=== PATIENT | female | born 1970 | race Caucasian/White ===

== ENCOUNTER 2016-11-27 10:05 | Emergency (ER) | payer OTHER ==
[~2016-11-27 10:05] MED LIST: IBUP-988 PO; Z.0.NO CURRENT MEDS
[2016-11-27 10:15] VITALS: BP 142/81; PULSE 89; RESP 15; TEMP 98.1; O2SAT 98
[2016-12-25] MEDS ORDERED: LISI10TA3 PO (16:13)
[2017-01-18] MEDS ORDERED: CIPR500T2 PO (14:32)
[2017-01-21] MEDS ORDERED: NITR1CAP36 PO (08:49)
[2017-01-31] MEDS ORDERED: LISI10TA3 PO (15:17)
[2017-02-08] MEDS ORDERED: HYDR-3533 PO (12:28)
[2017-02-08] MEDS ORDERED: BACT800T5 PO (12:34)
== END 2016-11-27 11:57 | disposition left against medical advice (07) ==
LOC: NED 10:05
DX: M25.519 Pain in unspecified shoulder (principal)
CPT/HCPCS: 99281

== ENCOUNTER → 2016-12-19 | Outpatient (CLI) | payer OTHER ==
[~2016-12-19] MED LIST changes: +BACT800T5 PO; +CIPR500T2 PO; +HYDR-3533 PO; -IBUP-988 PO; +LISI10TA3 PO; +NITR1CAP36 PO; -Z.0.NO CURRENT MEDS
[2016-12-19 08:56] LABS: BASOPHIL # 0.1 TH/MM3 (0-0.2); BASOPHIL % 1.3 % (0.0-2.0); EOSINOPHIL # 0.2 TH/MM3 (0-0.4); EOSINOPHIL % 2.7 % (0.0-4.0); HEMATOCRIT 40.1 % (35.0-46.0); HEMO FLAGS DIFF FINAL; LYMPH % 26.3 % (9.0-44.0); LYMPHOCYTE # 1.8 TH/MM3 (1.0-4.8); MEAN CELL VOLUME 94.6 FL (80.0-100.0); MEAN CORPUSCULAR HEMOGLOBIN 32.3 PG (27.0-34.0); MEAN CORPUSCULAR HGB CONC 34.1 % (32.0-36.0); MONO % 9.4 % (0.0-8.0); NEUT % 60.3 % (16.0-70.0); PLATELET COUNT 179 TH/MM3 (150-450); RED BLOOD COUNT 4.24 MIL/MM3 (4.00-5.30); RED CELL DISTRIBUTION WIDTH 13.3 % (11.6-17.2); WHITE BLOOD COUNT 6.7 TH/MM3 (4.0-11.0)
[2016-12-19 09:27] LABS: ANION GAP 9 MEQ/L (5-15); AST (GOT) 18 U/L (15-37); BICARBONATE 23.9 MEQ/L (21.0-32.0); BLOOD UREA NITROGEN 3 MG/DL (7-18); CHLORIDE 94 MEQ/L (98-107); GLOMERULAR FILTRATION RATE 100 ML/MIN (>89); GLUCOSE,FASTING 94 MG/DL (74-99); POTASSIUM 3.5 MEQ/L (3.5-5.1); SODIUM (NA) 127 MEQ/L (136-145)
[2016-12-19 09:29] LABS: ALT (GPT) 22 U/L (10-53)
[2016-12-19 09:38] LABS: ALKALINE PHOSPHATASE 54 U/L (45-117); HDL CHOLESTEROL 84.4 MG/DL (40.0-60.0); LDL CHOLESTEROL 82 MG/DL (0-99); TOTAL BILIRUBIN ADULT 0.2 MG/DL (0.2-1.0)
--- NOTE | 2016-12-19 11:06 | RADRPT ---
EXAM DATE/TIME: 12/19/2016 10:01 [facility] COMPARISON: No previous studies available for comparison. INDICATIONS : Irregular periods. MEDICAL HISTORY : Hypertension. Irregular periods. Ovarian cysts. SURGICAL HISTORY : Right oopherectomy. Left ovarian cysts removed. ENCOUNTER: Initial ACUITY: 2 months PAIN SCORE: 5/10 LOCATION: Bilateral pelvis MEASUREMENTS: UTERUS: 8.5 x 5.5 x 3.9 cm ENDOMETRIAL STRIPE: 9 mm RIGHT OVARY: Surgically absent LEFT OVARY: 5.2 x 3.9 x 3.8 cm FINDINGS: UTERUS: The myometrium has homogeneous echotexture without mass. Endometrium measures 9 mm, prominent in the 46 year-old. RIGHT OVARY: Surgically absent LEFT OVARY: 3.7 cm simple cyst. History of previous cyst resection. MISCELLANEOUS: No free fluid. CONCLUSION: Limited visualization because of non-full bladder. Mildly prominent endometrium may be normal depending on cycle. Baltazar Ashraf MD FACR on December 19, 2016 at 11:02 Board Certified Radiologist. This report was verified electronically.
== END ==
LOC: HRAD 08:29
PROVIDERS: ATTEND Nurse Practitioner Family
DX: N92.6 Irregular menstruation, unspecified (principal); I10 Essential (primary) hypertension
CPT/HCPCS: 36415; 76856; 80053; 80061; 84443; 85025

== ENCOUNTER → 2017-02-12 | Outpatient (CLI) | payer OTHER ==
[~2017-02-12] MED LIST changes: -CIPR500T2 PO; +CYAN100025 SL; -NITR1CAP36 PO; +VITA250T3 PO
[2017-02-12 16:03] LABS: BACTERIA, URINE OCC /hpf; BLOOD, URINE NEG (NEG); COMMENT (UR) CULTURE INDICATED; CULTURE IF INDICATED CULTURE INDICATED; GLUCOSE,URINE NEG (NEG); KETONE, URINE NEG (NEG); NITRITE,URINE NEG (NEG); SQUAMOUS EPITHELIAL CELL URINE <1 /hpf (0-5); URINE COLOR LIGHT-YELLOW (YELLW/STRAW)
== END ==
LOC: CLAB 15:12
PROVIDERS: ATTEND Nurse Practitioner Family
DX: N30.01 Acute cystitis with hematuria (principal)
CPT/HCPCS: 81001; 87086

== ENCOUNTER → 2017-02-14 | Outpatient (CLI) | payer OTHER ==
[2017-02-14 14:31] LABS: AUTOMATED NEUTROPHIL # 2.7 TH/MM3 (1.8-7.7); BASOPHIL # 0.1 TH/MM3 (0-0.2); BASOPHIL % 1.1 % (0.0-2.0); EOSINOPHIL # 0.2 TH/MM3 (0-0.4); EOSINOPHIL % 3.8 % (0.0-4.0); HEMATOCRIT 43.3 % (35.0-46.0); HEMOGLOBIN 15.2 GM/DL (11.6-15.3); LYMPH % 40.6 % (9.0-44.0); LYMPHOCYTE # 2.5 TH/MM3 (1.0-4.8); MEAN CELL VOLUME 93.9 FL (80.0-100.0); MEAN CORPUSCULAR HEMOGLOBIN 32.9 PG (27.0-34.0); MEAN CORPUSCULAR HGB CONC 35.1 % (32.0-36.0); MEAN PLATELET VOLUME 8.2 FL (7.0-11.0); MONO % 9.6 % (0.0-8.0); MONOCYTE # 0.6 TH/MM3 (0-0.9); NEUT % 44.9 % (16.0-70.0); PLATELET COUNT 202 TH/MM3 (150-450); RED BLOOD COUNT 4.61 MIL/MM3 (4.00-5.30); RED CELL DISTRIBUTION WIDTH 12.6 % (11.6-17.2)
[2017-02-14 14:38] LABS: PROTHROMBIN TIME - PATIENT 10.6 SEC (9.8-11.6)
[2017-02-14 14:40] LABS: ALBUMIN 3.5 GM/DL (3.4-5.0); AST (GOT) 23 U/L (15-37); BICARBONATE 25.8 MEQ/L (21.0-32.0); BLOOD UREA NITROGEN 6 MG/DL (7-18); CALCIUM 9.2 MG/DL (8.5-10.1); CHLORIDE 103 MEQ/L (98-107); CREATININE 0.77 MG/DL (0.50-1.00); GLOMERULAR FILTRATION RATE 80 ML/MIN (>89); GLUCOSE,FASTING 59 MG/DL (74-99); SODIUM (NA) 135 MEQ/L (136-145)
[2017-02-14 14:41] LABS: ALT (GPT) 31 U/L (10-53)
[2017-02-14 14:45] LABS: ALKALINE PHOSPHATASE 65 U/L (45-117); TOTAL BILIRUBIN ADULT 0.2 MG/DL (0.2-1.0); TOTAL PROTEIN 7.6 GM/DL (6.4-8.2)
== END ==
LOC: CPRE 13:54
PROVIDERS: ATTEND Obstetrics & Gynecology Gynecologic Oncology
DX: Z01.812 Encounter for preprocedural laboratory examination (principal); N93.9 Abnormal uterine and vaginal bleeding, unspecified
CPT/HCPCS: 36415; 80053; 84703; 85025; 85610; 85730

== ENCOUNTER → 2017-03-05 | Day surgery (SDC) | payer OTHER ==
[~2017-03-05] VITALS: Ht 175.3 cm; Wt 82.8 kg
[~2017-03-05] MED LIST changes: +ACETAMINOPHEN 1000 MG/100 ML 100 ML IV ONE; -BACT800T5 PO; +CHLORHEXIDINE GLUCONATE 2 % 1 PACK (2 CLOTHS) TOPICAL PRN; +DEXAMETHASONE SOD PHOS 4 MG/ML VIAL IV ONE; +DO NOT ADM ANY ANTICOAGULANT DRUGS PRN; +FAMOTIDINE 20 MG/2 ML VIAL ONE; +HYDR-3516 PO; +INSULIN HUMAN REGULAR 1,000 UNITS/10 ML VIAL SQ PRN; +KETOROLAC TROMETHAMINE 30 MG/ML (IVP) VIAL IV PUSH SCH; +KETOROLAC TROMETHAMINE 30 MG/ML (IVP) VIAL ONE; +LACTATED RINGER'S 1000 ML IV PRN; +LIDOCAINE HCL 1% PF 5 ML SYRINGE OTHER ONE; +METOPROLOL TARTRATE 25 MG TAB PO PRN; +MIDAZOLAM HCL 2 MG/2 ML VIAL IV ONE; +ONDANSETRON HCL 4 MG/2 ML VIAL IV PUSH ONE; +POVIDONE IODINE 5% (ANTISEPSIS KIT) 4 APPLICATIONS EACH NARE PRN; +PROPOFOL 200 MG/20 ML AMP IV ONE; +SODIUM CHLORID 0.9% 500 ML IV PRN; +ZOFR4TAB PO; +oxyCODONE/ACETAMINOPHEN 5 MG/325 MG TAB PO PRN
[2017-03-05 16:30] VITALS: BP 129/78; PULSE 90; RESP 15; TEMP 97.2; O2SAT 99
--- NOTE | 2017-03-06 09:27 | MP ---
cc: MILAD OSPINA MD, KELLY L. MD DATE OF SURGERY: 03/05/2017 PREOPERATIVE DIAGNOSIS 1. Irregular bleeding. 2. Nondiagnostic office endometrial biopsy. 3. Status post prior endometrial ablation. POSTOPERATIVE DIAGNOSIS 1. Irregular bleeding. 2. Nondiagnostic office endometrial biopsy. 3. Status post prior endometrial ablation. 4. Prominent cervical transformation zone. PROCEDURE Examination under anesthesia, fractional dilation and curettage, cervical biopsy. SURGEON Cat Askew MD [employer] INS[employer]CTION [employer] REPAIR MANAGER [employer] human resources assistant. ANESTHESIA Laryngeal mask anesthesia. ESTIMATED BLOOD LOSS 30 ccs. HISTORY This is a 47-year-old female who has history of irregular heavy bleeding and has previously undergone an endometrial ablation. This ablation significantly reduced her bleeding. However, in recent months bleeding has increased. Her bleeding can be irregular and that it is not scheduled consistent with menses and can be at times unpredictable and has become more troublesome and heavier in recent times, for which she sought further evaluation. Outpatient endometrial biopsy had scant amount of tissue, was nondiagnostic. She was counseled regarding options and favored dilation and curettage. She is seen in the preop holding area where she is again counseled, questions were answered. She expressed good understanding and agrees. FINDINGS There is stenosis of the cervix with a marked narrowing of the endocervical canal. On the cervix itself the 12 o'clock position near the transformation zone was prominent, felt a bit nodular. The cervix otherwise grossly appeared normal. There was no parametrial thickening. The uterus and cervix were mobile. The uterine cavity sounded to 6 cm. The amount of tissue obtained on endocervical curetting and endometrial curetting was relatively scant. PROCEDURE She was taken to the operating room and placed in dorsal lithotomy position, after laryngeal mask anesthesia was administered, time-out was undertaken. She was identified by sight recognition and hospital ID bracelet and the proposed procedure was reviewed and confirmed. She was positioned in lithotomy position. Exam under anesthesia was performed with findings as described above, prepped and draped in sterile fashion, in-and-out catheterization of the bladder. This cervix was grasped, endocervical curetting was performed. Multiple circumferential passes and the tissue combined as endocervical curetting. The uterine cavity was sounded. The uterus was slightly retroverted, 6 cm in depth and the cervical canal was dilated. There was resistance at the endocervical canal due to some stenosis but gradual dilation allowed opening enough for a small curette which was then used multiple passes circumferentially around the endometrium, tissue combined as endometrial curettings. All surfaces of the endometrium were gritty and only a scant amount of tissue was obtained. Biopsy was taken at the 12 o'clock position of the cervix which grossly appeared somewhat irregular and these sites were rendered hemostatic with topical Monsel's solution. The tenaculum was removed and tenaculum sites were rendered hemostatic with Monsel's. There were no remaining foreign objects in the vagina. Preliminary and final counts were correct. She was returned to dorsal supine position and was pending reversal of anesthesia when I left the operating room to precede her to the Post Anesthesia Care Unit. MD BEAN Huff/LEI /8:47 AM /9:09 AM
== END | disposition home or self-care (01) ==
LOC: HSDC 11:10
PROVIDERS: ATTEND Obstetrics & Gynecology Gynecologic Oncology
DX: N93.9 Abnormal uterine and vaginal bleeding, unspecified (principal); I10 Essential (primary) hypertension
CPT/HCPCS: 00940; 58120; 84703; 86850; 86900; 86901; 88305; J0131; J1100; J2250; J2405; J3010; J7120; 88307; J1885

== ENCOUNTER 2017-03-09 14:46 | Emergency (ER) | payer OTHER ==
[~2017-03-09] VITALS: Ht 175.3 cm; Wt 84.0 kg
[~2017-03-09 14:46] MED LIST changes: -ACETAMINOPHEN 1000 MG/100 ML 100 ML IV ONE; -CHLORHEXIDINE GLUCONATE 2 % 1 PACK (2 CLOTHS) TOPICAL PRN; -DEXAMETHASONE SOD PHOS 4 MG/ML VIAL IV ONE; -DO NOT ADM ANY ANTICOAGULANT DRUGS PRN; -FAMOTIDINE 20 MG/2 ML VIAL ONE; -HYDR-3533 PO; -INSULIN HUMAN REGULAR 1,000 UNITS/10 ML VIAL SQ PRN; -KETOROLAC TROMETHAMINE 30 MG/ML (IVP) VIAL IV PUSH SCH; -KETOROLAC TROMETHAMINE 30 MG/ML (IVP) VIAL ONE; -LACTATED RINGER'S 1000 ML IV PRN; -LIDOCAINE HCL 1% PF 5 ML SYRINGE OTHER ONE; -METOPROLOL TARTRATE 25 MG TAB PO PRN; -MIDAZOLAM HCL 2 MG/2 ML VIAL IV ONE; -ONDANSETRON HCL 4 MG/2 ML VIAL IV PUSH ONE; -POVIDONE IODINE 5% (ANTISEPSIS KIT) 4 APPLICATIONS EACH NARE PRN; -PROPOFOL 200 MG/20 ML AMP IV ONE; -SODIUM CHLORID 0.9% 500 ML IV PRN; -ZOFR4TAB PO; -oxyCODONE/ACETAMINOPHEN 5 MG/325 MG TAB PO PRN
[2017-03-09 14:48] VITALS: BP 137/92; PULSE 91; RESP 17; TEMP 97.5; O2SAT 99
[2017-03-09] MEDS ORDERED: SODIUM CHLOR 0.9% 1000 ML INJ 1,000 ML IV SCH (15:05)
--- NOTE | 2017-03-09 15:09 | PD ---
HPI Chief Complaint: Bleeding Time Seen by Provider: 15:07 Travel History International Travel<30 days: No Contact w/Intl Traveler<30days: No Traveled to known affect area: No History of Present Illness HPI 47-year-old female presents for evaluation. The patient underwent dilation and curettage, cervical biopsy performed on March [address] Askew. Since then she has had lower abdominal cramping, constant, unrelieved with ibuprofen. She reports that she had low-grade fevers the first 1-2 days after the surgery but none since then. She endorses some nausea as well as vaginal bleeding/ clotting. Denies dysuria, flank pain, vomiting, diarrhea or constipation, chest pain or shortness of breath, cough or congestion. No other complaints at this time. 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) Neurologic: No Psychiatric: No Reproductive: Yes (LEFT OVARIAN SX, VAGINAL ) Respiratory: No Integumentary: Yes (PSORIASIS) Immunizations Current: No Pneumonia: Yes Thyroid Disease: No Triglycerides - High: No Ulcer: Yes PNEUMOCCOCAL Vaccine (Year): 2 ?: Unknown Menopausal: Yes : 5 Para: 4 Miscarriage: 1 Ectopic : Yes Past Surgical History Abdominal Surgery: Yes ( AND OVARIAN SURGERY) AICD: No Cardiac Surgery: No Section: Yes Ear Surgery: No Endocrine Surgery: No Eye Surgery: No Genitourinary Surgery: No Gynecologic Surgery: Yes ( X 1, RIGHT OVARY REMOVED) Hysterectomy: No Joint Replacement: No Oral Surgery: No Pacemaker: No Thoracic Surgery: No Tonsillectomy: Yes Other Surgery: Yes (LUMPECTOMY LT BREAST BENIGN) Social History Alcohol Use: Yes (ADMITS TO DRINKING DAILY, 4OZ TO 6 PK BEER DAILY, DRANK AT 0800 THIS AM ) Tobacco Use: Yes (1 PPD) Substance Use: No Allergies-Medications (Allergen,Severity, Reaction): Coded Allergies: penicillin G (Verified Allergy, Severe, Swelling, 03/05/17) Uncoded Allergies: MDRO (Adverse Reaction, Unknown, 02/14/17) PATIENT STATES SHE HAD MRSA TWO WEEKS AGO ON ARMS; HAS BEEN ON COURSE OF ANTIBIOTICS WHICH ENDS TOMORROW 02/15/17 Reported Meds & Prescriptions Reported Meds & Active Scripts Active Zofran (Ondansetron HCl) 4 Mg Tab 4 Mg PO Q6HR PRN Hydrocodone-Acetamin 5-325 mg (Hydrocodone/Acetaminophen) 5 Mg-325 Mg Tablet 1 Tab PO QID Lisinopril 10 Mg Tab 10 Mg PO DAILY Reported Hydrocodone-Acetaminophen 5-325 mg Tab 1 Tab PO Q4H PRN Vitamin C (Ascorbic Acid) 250 Mg Tab 250 Mg PO DAILY B-12 (Cyanocobalamin) 1,000 Mcg Subl 1,000 Mcg SL DAILY Review of Systems Except as stated in HPI: all other systems reviewed are Neg Physical Exam Narrative GENERAL: Well-developed well-nourished female in no acute distress SKIN: Warm and dry. HEAD: Atraumatic. Normocephalic. EYES: Pupils equal and round. No scleral icterus. No injection or drainage. ENT: No nasal bleeding or discharge. Mucous membranes pink and moist. NECK: Trachea midline. No JVD. CARDIOVASCULAR: Regular rate and rhythm. No murmur appreciated. RESPIRATORY: No accessory muscle use. Clear to auscultation. Breath sounds equal bilaterally. GASTROINTESTINAL: Abdomen soft, mild lower quadrant/suprapubic tenderness without guarding. MUSCULOSKELETAL: No obvious deformities. No clubbing. No cyanosis. No edema. NEUROLOGICAL: Awake and alert. No obvious cranial nerve deficits. Motor grossly within normal limits. Normal speech. PSYCHIATRIC: Appropriate mood and affect; insight and judgment normal. Data Data Last Documented VS Vital Signs Date Time Temp Pulse Resp B/P (MAP) Pulse Ox O2 Delivery O2 Flow Rate FiO2 03/09/17 14:48 97.5 91 17 137/92 (107) 99 Room Air Orders Orders Complete Blood Count With Diff (03/09/17 15:05) Comprehensive Metabolic Panel (03/09/17 15:05) Lipase (03/09/17 15:05) Prothrombin Time / Inr (Pt) (03/09/17 15:05) Act Partial Throm Time (Ptt) (03/09/17 15:05) Urinalysis - C+S If Indicated (03/09/17 15:05) Morphine Inj (Morphine Inj) (03/09/17 15:15) Ondansetron Inj (Zofran Inj) (03/09/17 15:15) Sodium Chlor 0.9% 1000 Ml Inj (Ns 1000 M (03/09/17 15:05) Ed Urine Pregnancytest Poc (03/09/17 15:05) Us Pelvis Comp W Dop Transvag (03/09/17 15:05) Ed Discharge Order (03/09/17 16:45) Labs Laboratory Tests Test 03/09/17 14:30 03/09/17 15:55 White Blood Count 6.5 TH/MM3 Red Blood Count 4.39 MIL/MM3 Hemoglobin 14.4 GM/DL Hematocrit 40.8 % Mean Corpuscular Volume 92.8 FL Mean Corpuscular Hemoglobin 32.8 PG Mean Corpuscular Hemoglobin Concent 35.4 % Red Cell Distribution Width 12.9 % Platelet Count 160 TH/MM3 Mean Platelet Volume 7.9 FL Neutrophils (%) (Auto) 51.7 % Lymphocytes (%) (Auto) 32.6 % Monocytes (%) (Auto) 11.8 % Eosinophils (%) (Auto) 3.2 % Basophils (%) (Auto) 0.7 % Neutrophils # (Auto) 3.4 TH/MM3 Lymphocytes # (Auto) 2.1 TH/MM3 Monocytes # (Auto) 0.8 TH/MM3 Eosinophils # (Auto) 0.2 TH/MM3 Basophils # (Auto) 0.0 TH/MM3 CBC Comment DIFF FINAL Differential Comment Prothrombin Time 10.5 SEC Prothromb Time International Ratio 1.0 RATIO Activated Partial Thromboplast Time 26.6 SEC Blood Urea Nitrogen 10 MG/DL Creatinine 0.67 MG/DL Random Glucose 81 MG/DL Total Protein 7.7 GM/DL Albumin 3.7 GM/DL Calcium Level 8.8 MG/DL Alkaline Phosphatase 69 U/L Aspartate Amino Transf (AST/SGOT) 23 U/L Alanine Aminotransferase (ALT/SGPT) 24 U/L Total Bilirubin 0.4 MG/DL Sodium Level 138 MEQ/L Potassium Level 4.0 MEQ/L Chloride Level 105 MEQ/L Carbon Dioxide Level 23.7 MEQ/L Anion Gap 9 MEQ/L Estimat Glomerular Filtration Rate 94 ML/MIN Lipase 754 U/L Urine Color LIGHT-YELLOW Urine Turbidity CLEAR Urine pH 5.5 Urine Specific [place] 1.008 Urine Protein NEG mg/dL Urine Glucose (UA) NEG mg/dL Urine Ketones NEG mg/dL Urine Occult Blood NEG Urine Nitrite NEG Urine Bilirubin NEG Urine Urobilinogen LESS THAN 2.0 MG/DL Urine Leukocyte Esterase NEG MDM Medical Decision Making Medical Screen Exam Complete: Yes Emergency Medical Condition: Yes Medical Record Reviewed: Yes Differential Diagnosis Postoperative pelvic pain, endometritis, pelvic inflammatory disease, cystitis Narrative Course 47-year-old female with pelvic cramping ever since dilation and curettage/ cervical biopsy performed on March 05. Plan is for basic lab work, urinalysis, pelvic ultrasound. She will be given morphine, Zofran, IV fluids. The patient's lab work is reassuring. The only abnormalities mildly elevated lipase level of 754, she has no real epigastric pain, or pain is primarily in the suprapubic and pelvic region. The morphine helped significantly with her pain. Her ultrasound was normal. At this point in time the plan will be to treat the patient symptomatically with pain control and have her follow-up in [address] Askew as scheduled. She is agreeable to this plan. She is stable for discharge. Diagnosis Primary Impression: Postoperative abdominal pain Additional Impression: Elevated lipase Referrals: Cat Askew MD Additional Instructions: Follow-up in 2 days with your surgeon as scheduled. Medication as needed. Do not drive or drink alcohol when taking Lortab. Return for any emergent medical conditions. Med/Other Pt SpecificInfo: Prescription(s) given Scripts Ondansetron (Zofran) 4 Mg Tab 4 MG PO Q6HR Y for NAUSEA OR VOMITING, #15 TAB 0 Refills Prov: Yani Reynoso MD 03/09/17 Hydrocodone/Acetaminophen (Hydrocodone-Acetamin 5-325 mg) 5 Mg-325 Mg Tablet 1 TAB PO QID, #15 Prov: Yani Reynoso MD 03/09/17 Disposition: 01 DISCHARGE HOME Condition: Stable Ignacio Shelton Mar 09, 2017 15:09
[2017-03-09] MEDS ORDERED: ONDANSETRON HCL 4 MG/2 ML VIAL IV PUSH ONE (15:15)
[2017-03-09] MEDS ORDERED: MORPHINE SULFATE 4 MG/ML INJ IV PUSH ONE (15:15)
[2017-03-09 15:33] LABS: AUTOMATED NEUTROPHIL # 3.4 TH/MM3 (1.8-7.7); BASOPHIL % 0.7 % (0.0-2.0); EOSINOPHIL # 0.2 TH/MM3 (0-0.4); EOSINOPHIL % 3.2 % (0.0-4.0); HEMATOCRIT 40.8 % (35.0-46.0); HEMO FLAGS DIFF FINAL; LYMPH % 32.6 % (9.0-44.0); LYMPHOCYTE # 2.1 TH/MM3 (1.0-4.8); MEAN CELL VOLUME 92.8 FL (80.0-100.0); MEAN CORPUSCULAR HEMOGLOBIN 32.8 PG (27.0-34.0); MEAN CORPUSCULAR HGB CONC 35.4 % (32.0-36.0); MONO % 11.8 % (0.0-8.0); NEUT % 51.7 % (16.0-70.0); PLATELET COUNT 160 TH/MM3 (150-450); RED BLOOD COUNT 4.39 MIL/MM3 (4.00-5.30); RED CELL DISTRIBUTION WIDTH 12.9 % (11.6-17.2); WHITE BLOOD COUNT 6.5 TH/MM3 (4.0-11.0)
--- NOTE | 2017-03-09 15:33 | PD ---
Physical Exam Date Seen by Provider: Mar 09, 2017 Time Seen by Provider: 15:15 Narrative This patient presents complaining with pelvic cramping and vaginal bleeding status post D&C on 03/05. Data Data Last Documented VS Vital Signs Date Time Temp Pulse Resp B/P (MAP) Pulse Ox O2 Delivery O2 Flow Rate FiO2 03/09/17 14:48 97.5 91 17 137/92 (107) 99 Room Air Orders Orders Complete Blood Count With Diff (03/09/17 15:05) Comprehensive Metabolic Panel (03/09/17 15:05) Lipase (03/09/17 15:05) Prothrombin Time / Inr (Pt) (03/09/17 15:05) Act Partial Throm Time (Ptt) (03/09/17 15:05) Urinalysis - C+S If Indicated (03/09/17 15:05) Us Pelvis Comp W Doppler (03/09/17 15:05) Morphine Inj (Morphine Inj) (03/09/17 15:15) Ondansetron Inj (Zofran Inj) (03/09/17 15:15) Sodium Chlor 0.9% 1000 Ml Inj (Ns 1000 M (03/09/17 15:05) Ed Urine Pregnancytest Poc (03/09/17 15:05) Labs Laboratory Tests Test 03/09/17 14:30 MDM Supervised Visit with ALEX: Yes Narrative Course I, Dr. Reynoso, have reviewed the advance practice practitioner's documentation and am in agreement, met with the patient face to face, made the diagnosis, and the medical decision making was done by me. *My assessment and Findings: The patient looks uncomfortable. She is hemodynamically stable. Please see Ignacio Shelton PA-C's note for results of laboratory and radiographic evaluation, ED course, final diagnosis and disposition Yani Reynoso MD Mar 09, 2017 15:33
[2017-03-09 15:43] LABS: APTT (PATIENT) 26.6 SEC (24.3-30.1); PROTHROMBIN TIME - PATIENT 10.5 SEC (9.8-11.6)
[2017-03-09 15:52] LABS: ALKALINE PHOSPHATASE 69 U/L (45-117); TOTAL BILIRUBIN ADULT 0.4 MG/DL (0.2-1.0)
[2017-03-09 16:01] LABS: ALT (GPT) 24 U/L (10-53); ANION GAP 9 MEQ/L (5-15); AST (GOT) 23 U/L (15-37); BICARBONATE 23.7 MEQ/L (21.0-32.0); BLOOD UREA NITROGEN 10 MG/DL (7-18); CHLORIDE 105 MEQ/L (98-107); GLOMERULAR FILTRATION RATE 94 ML/MIN (>89); SODIUM (NA) 138 MEQ/L (136-145)
[2017-03-09 16:35] LABS: BLOOD, URINE NEG (NEG); GLUCOSE,URINE NEG (NEG); KETONE, URINE NEG (NEG); NITRITE,URINE NEG (NEG); PH, URINE 5.5 (5.0-8.5); URINE COLOR LIGHT-YELLOW (YELLW/STRAW)
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
[2017-03-09] MEDS ORDERED: ZOFR4TAB PO (16:44)
[2017-03-09] MEDS ORDERED: HYDR-3516 PO (16:44)
[2017-03-09 17:02] LABS: BACTERIA, URINE RARE /hpf; COMMENT (UR) CULT NOT INDICATED; CULTURE IF INDICATED CULT NOT INDICATED; RBC, URINE 0-3 /hpf (0-3); SQUAMOUS EPITHELIAL CELL URINE 0-5 /hpf (0-5); WBC, URINE 0-2 /hpf (0-5)
== END 2017-03-09 17:17 | disposition home or self-care (01) ==
LOC: NEPC 14:46
DX: G89.18 Other acute postprocedural pain (principal); R10.30 Lower abdominal pain, unspecified; R79.89 Other specified abnormal findings of blood chemistry; R11.0 Nausea; N93.9 Abnormal uterine and vaginal bleeding, unspecified; I10 Essential (primary) hypertension; F17.200 Nicotine dependence, unspecified, uncomplicated; Z98.890 Other specified postprocedural states; Z86.2 Personal history of diseases of the blood and blood-forming organs and certain disorders involving the immune mechanism; Z87.09 Personal history of other diseases of the respiratory system; Z86.59 Personal history of other mental and behavioral disorders; Z87.448 Personal history of other diseases of urinary system; Z87.39 Personal history of other diseases of the musculoskeletal system and connective tissue; Z87.42 Personal history of other diseases of the female genital tract; Z87.2 Personal history of diseases of the skin and subcutaneous tissue
CPT/HCPCS: 76830; 76856; 80053; 81001; 83690; 84703; 85025; 85610; 85730; 93975; 96361; 96374; 96375; 99285; J2270; J2405; J7030

== ENCOUNTER 2017-04-18 20:42 | Emergency (ER) | payer OTHER ==
[~2017-04-18] VITALS: Ht 175.3 cm; Wt 84.1 kg
[~2017-04-18 20:42] MED LIST changes: +ZOFR4TAB PO
[2017-04-18 20:58] VITALS: BP 121/74; PULSE 92; RESP 16; TEMP 97.8; O2SAT 100
[2017-04-18 21:18] VITALS: BP_SYST 117; BP_SYST 172; BP_DIAS 73; BP_DIAS 74; PULSE 81; RESP 14; O2SAT 100
[2017-04-18] MEDS ORDERED: ACETAMINOPHEN 325 MG TAB PO ONE (21:45)
[2017-04-18 22:02] LABS: BASOPHIL % 0.8 % (0.0-2.0); EOSINOPHIL # 0.2 TH/MM3 (0-0.4); EOSINOPHIL % 3.5 % (0.0-4.0); HEMATOCRIT 39.3 % (35.0-46.0); HEMOGLOBIN 13.4 GM/DL (11.6-15.3); LYMPHOCYTE # 1.7 TH/MM3 (1.0-4.8); MEAN CELL VOLUME 93.8 FL (80.0-100.0); MEAN CORPUSCULAR HEMOGLOBIN 32.1 PG (27.0-34.0); MEAN CORPUSCULAR HGB CONC 34.2 % (32.0-36.0); MEAN PLATELET VOLUME 7.8 FL (7.0-11.0); MONO % 15.2 % (0.0-8.0); MONOCYTE # 0.9 TH/MM3 (0-0.9); NEUT % 51.5 % (16.0-70.0); PLATELET COUNT 148 TH/MM3 (150-450); RED BLOOD COUNT 4.19 MIL/MM3 (4.00-5.30); RED CELL DISTRIBUTION WIDTH 13.8 % (11.6-17.2); WHITE BLOOD COUNT 5.8 TH/MM3 (4.0-11.0)
--- NOTE | 2017-04-18 22:12 | RADRPT ---
EXAM DATE/TIME: 04/18/2017 22:01 [facility] COMPARISON: No previous studies available for comparison. INDICATIONS : Right hip discomfort; fall. MEDICAL HISTORY : None. SURGICAL HISTORY : None. ENCOUNTER: Initial ACUITY: 1 day PAIN SCORE: 4/10 LOCATION: Right hip FINDINGS: Examination of the right hip was performed with AP Pelvis. The primary and secondary trabecular lorena bethel of the femoral neck is intact. The hip joint is of normal width without significant sclerosis or bony hypertrophy. The acetabulum is grossly intact. CONCLUSION: Unremarkable examination of the right hip. Brian Cerna MD on April 18, 2017 at 22:09 Board Certified Radiologist. This report was verified electronically.
--- NOTE | 2017-04-18 22:12 | RADRPT ---
EXAM DATE/TIME: 04/18/2017 22:04 [facility] COMPARISON: No previous studies available for comparison. INDICATIONS : Chest congestion and cough. MEDICAL HISTORY : Hypercholesterolemia. Hypertension. Liver disease. SURGICAL HISTORY : Tonsillectomy. section. Lumpectomy. Right oopherectomy. ENCOUNTER: Initial ACUITY: 3 days PAIN SCORE: 2/10 LOCATION: Bilateral chest FINDINGS: A single view of the chest demonstrates the lungs to be symmetrically aerated without evidence of mas s, infiltrate or effusion. Borderline heart size.. Osseous structures are intact. CONCLUSION: No acute disease Brian Cerna MD on April 18, 2017 at 22:10 Board Certified Radiologist. This report was verified electronically.
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
[2017-04-18 22:21] LABS: BICARBONATE 26.7 MEQ/L (21.0-32.0); BLOOD UREA NITROGEN 4 MG/DL (7-18); CALCIUM 8.6 MG/DL (8.5-10.1); CHLORIDE 105 MEQ/L (98-107); CREATININE 0.51 MG/DL (0.50-1.00); GLOMERULAR FILTRATION RATE 129 ML/MIN (>89); GLUCOSE,RANDOM 89 MG/DL (74-106); MAGNESIUM 2.2 MG/DL (1.5-2.5); SODIUM (NA) 137 MEQ/L (136-145)
[2017-04-18 22:25] LABS: TROPONIN I LESS THAN 0.02 NG/ML (0.02-0.05)
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
[2017-04-18] MEDS ORDERED: TYLE325T PO (23:35)
--- NOTE | 2017-04-19 14:54 | EKG ---
Date Performed: 04/18/2017 Time Performed: 21:51:19 PTAGE: 47 years EKG: Sinus rhythm Since previous tracing, no significant change noted NORMAL ECG PREVIOUS TRACING : 07/21/2010 14.33 DOCTOR: Mark Guerrero Interpretating Date/Time 04/19/2017 14:51:56
== END 2017-04-18 23:57 ==
LOC: NEPD 20:42
DX: F41.0 Panic disorder [episodic paroxysmal anxiety] (principal); I10 Essential (primary) hypertension; F17.200 Nicotine dependence, unspecified, uncomplicated; M54.2 Cervicalgia; Z79.899 Other long term (current) drug therapy
CPT/HCPCS: 71010; 72125; 73502; 80048; 80307; 83735; 84484; 84703; 85025; 93005; 99285

== ENCOUNTER 2017-07-10 12:30 | Emergency (ER) | payer OTHER ==
[~2017-07-10 12:30] MED LIST changes: +TYLE325T PO
[2017-07-10 13:05] VITALS: BP 159/85; PULSE 65; RESP 18; TEMP 97.7; O2SAT 100
--- NOTE | 2017-07-10 13:34 | PD ---
HPI Chief Complaint: Musculoskeletal Complaint Time Seen by Provider: 13:05 Travel History International Travel<30 days: No Contact w/Intl Traveler<30days: No Traveled to known affect area: No History of Present Illness HPI Pt is a 47-year-old female presenting to emerge from for evaluation of right hip and shoulder pain after mechanical fall. Patient states she fell yesterday afternoon. She denies any head injury or loss of consciousness. Patient is ambulatory in triage. Symptom onset was gradual, symptom severity is mild to moderate, there are no alleviating factors. Pain is exacerbated with movement and ambulation. Pain is reported as a 7 out of 10. 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) Neurologic: No Psychiatric: No Reproductive: Yes (LEFT OVARIAN SX, VAGINAL ) Respiratory: No Integumentary: Yes (PSORIASIS) Immunizations Current: No Pneumonia: Yes Thyroid Disease: No Triglycerides - High: No Ulcer: Yes PNEUMOCCOCAL Vaccine (Year): 2 Menopausal: Yes : 5 Para: 4 Miscarriage: 1 Ectopic : Yes Past Surgical History Abdominal Surgery: Yes ( AND OVARIAN SURGERY) AICD: No Cardiac Surgery: No Section: Yes Ear Surgery: No Endocrine Surgery: No Eye Surgery: No Genitourinary Surgery: No Gynecologic Surgery: Yes ( X 1, RIGHT OVARY REMOVED, cervix ) Hysterectomy: No Joint Replacement: No Oral Surgery: No Pacemaker: No Thoracic Surgery: No Tonsillectomy: Yes Other Surgery: Yes (RIGHT OVARY REMOVED, TONSILLECTOMY) Social History Alcohol Use: No Tobacco Use: Yes (1/2 pack a day ) Substance Use: No Allergies-Medications (Allergen,Severity, Reaction): Coded Allergies: penicillin G (Verified Allergy, Severe, Swelling, 04/18/17) Uncoded Allergies: MDRO (Adverse Reaction, Unknown, 02/14/17) PATIENT STATES SHE HAD MRSA TWO WEEKS AGO ON [place]; HAS BEEN ON COURSE OF ANTIBIOTICS WHICH ENDS TOMORROW 02/15/17 Reported Meds & Prescriptions Reported Meds & Active Scripts Active Tylenol (Acetaminophen) 325 Mg Tab 325 Mg PO Q4H PRN Zofran (Ondansetron HCl) 4 Mg Tab 4 Mg PO Q6HR PRN Hydrocodone-Acetamin 5-325 mg (Hydrocodone/Acetaminophen) 5 Mg-325 Mg Tablet 1 Tab PO QID Lisinopril 10 Mg Tab 10 Mg PO DAILY Reported Hydrocodone-Acetaminophen 5-325 mg Tab 1 Tab PO Q4H PRN Vitamin C (Ascorbic Acid) 250 Mg Tab 250 Mg PO DAILY B-12 (Cyanocobalamin) 1,000 Mcg Subl 1,000 Mcg SL DAILY Review of Systems Except as stated in HPI: all other systems reviewed are Neg Musculoskeletal: Positive: Myalgias, Arthralgias Physical Exam Narrative GENERAL: Well-developed, well-nourished, alert female. Presenting in no acute distress. SKIN: Warm and dry. HEAD: Normocephalic. EYES: No scleral icterus. No injection or drainage. NECK: Supple, trachea midline. No JVD or lymphadenopathy. CARDIOVASCULAR: Regular rate RESPIRATORY: No accessory muscle use. MUSCULOSKELETAL: No obvious deformity. Data Data Last Documented VS Vital Signs Date Time Temp Pulse Resp B/P (MAP) Pulse Ox O2 Delivery O2 Flow Rate FiO2 07/10/17 13:05 97.7 65 18 159/85 (109) 100 Orders [facility] Medical Decision Making Medical Screen Exam Complete: Yes Emergency Medical Condition: Yes Interpretation(s) Vital Signs Date Time Temp Pulse Resp B/P (MAP) Pulse Ox O2 Delivery O2 Flow Rate FiO2 07/10/17 13:05 97.7 65 18 159/85 (109) 100 Differential Diagnosis Fracture versus sprain versus strain versus contusion versus other Narrative Course Patient is well-appearing 47-year-old female presenting for evaluation of right shoulder and hip pain after mechanical fall. Patient's vital signs are stable. Imaging ordered and pending. Patient was called be placed in a bed, she was no longer found in the emergency department. Patient left AMA. Diagnosis Primary Impression: Left against medical advice Mare Miner Jul 10, 2017 13:34
== END 2017-07-11 01:34 | disposition left against medical advice (07) ==
LOC: NED 12:30
DX: M25.551 Pain in right hip (principal); M25.511 Pain in right shoulder; W19.XXXA Unspecified fall, initial encounter; F41.9 Anxiety disorder, unspecified; F32.9 Major depressive disorder, single episode, unspecified; E78.00 Pure hypercholesterolemia, unspecified; I10 Essential (primary) hypertension; F17.200 Nicotine dependence, unspecified, uncomplicated; Z53.20 Procedure and treatment not carried out because of patient's decision for unspecified reasons
CPT/HCPCS: 99281

== ENCOUNTER → 2017-07-11 | Outpatient (CLI) | payer OTHER ==
--- NOTE | 2017-07-11 10:25 | RADRPT ---
EXAM DATE/TIME: 07/11/2017 09:22 [facility] COMPARISON: US PELVIS,COMP,W DOPLR, TRANS VAG, March 09, 2017, 16:01. INDICATIONS : Irregular cycles/pelvic mass. MEDICAL HISTORY : . Hypercholesterolemia. Hypertension. Asthma. Pneumonia. Ulcer. Irregular menstration. Liver disease. Arthritis. Miscariage x 1. Depression. Anxiety. Psoriasis. MRSA. Anemia. Blood transfusion. SURGICAL HISTORY : Tonsillectomy. section. Left ovarian cystectomy. Lumpectomy. Right oophorectomy. ENCOUNTER: Subsequent ACUITY: 4-6 months PAIN SCORE: 5/10 LOCATION: Bilateral pelvis MEASUREMENTS: UTERUS: 9.7 x 5.3 x 4.4 cm ENDOMETRIAL STRIPE: 7 mm RIGHT OVARY: Surgically absent LEFT OVARY: 3.5 x 2.5 x 1.9 cm FINDINGS: UTERUS: Mildly heterogeneous echotexture with several areas of focally altered echogenicity, likely fibroids the largest of which is a 2 cm hypoechoic lesion in the posterior fundus. Minimal endometrial and end ocervical fluid. Multiple nabothian cysts. RIGHT OVARY: Surgically absent LEFT OVARY: Slightly greater than 2 cm cyst MISCELLANEOUS: No free fluid. CONCLUSION: Fibroid uterus. Multiple nabothian cysts. Minimal endometrial and endocervical fluid, nonspecific. Small left ovarian cyst Brian Cerna MD on July 11, 2017 at 10:19 Board Certified Radiologist. This report was verified electronically.
== END ==
LOC: HRAD 09:00
PROVIDERS: ATTEND Obstetrics & Gynecology Gynecologic Oncology
DX: R19.00 Intra-abdominal and pelvic swelling, mass and lump, unspecified site (principal)
CPT/HCPCS: 76830; 76856

== ENCOUNTER 2017-09-08 13:34 | Emergency (ER) | payer OTHER ==
[~2017-09-08] VITALS: Ht 175.3 cm; Wt 82.0 kg
[2017-09-08 13:47] VITALS: BP 173/84; PULSE 65; RESP 18; TEMP 98.4; O2SAT 100
[2017-09-08] MEDS ORDERED: KETO1SOL3 LEFT EYE (15:21)
[2017-09-08] MEDS ORDERED: ERYTOIN10 LEFT EYE (15:21)
--- NOTE | 2017-09-08 15:21 | PD ---
HPI . [facility] Chief Complaint: Eye Problems/Injury Time Seen by Provider: 14:37 Travel History International Travel<30 days: No Contact w/Intl Traveler<30days: No Traveled to known affect area: No History of Present Illness HPI Patient presents with a chief complaint of pinkeye. Onset 2 days ago. She describes an itchy, burning sensation with increased tearing. 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) Neurologic: No Psychiatric: No Reproductive: Yes (LEFT OVARIAN SX, VAGINAL ) Respiratory: No Integumentary: Yes (PSORIASIS) Immunizations Current: No Pneumonia: Yes Thyroid Disease: No Triglycerides - High: No Ulcer: Yes PNEUMOCCOCAL Vaccine (Year): 2 Menopausal: Yes : 5 Para: 4 Miscarriage: 1 Ectopic : Yes Past Surgical History Abdominal Surgery: Yes ( AND OVARIAN SURGERY) AICD: No Cardiac Surgery: No Section: Yes Ear Surgery: No Endocrine Surgery: No Eye Surgery: No Genitourinary Surgery: No Gynecologic Surgery: Yes ( X 1, RIGHT OVARY REMOVED, cervix ) Hysterectomy: No Joint Replacement: No Oral Surgery: No Pacemaker: No Thoracic Surgery: No Tonsillectomy: Yes Other Surgery: Yes (RIGHT OVARY REMOVED, TONSILLECTOMY) Social History Alcohol Use: No Tobacco Use: Yes (1/2 pack a day ) Substance Use: No Allergies-Medications (Allergen,Severity, Reaction): Coded Allergies: penicillin G (Verified Allergy, Severe, Swelling, 04/18/17) Uncoded Allergies: MDRO (Adverse Reaction, Unknown, 02/14/17) PATIENT STATES SHE HAD MRSA TWO WEEKS AGO ON [place]; HAS BEEN ON COURSE OF ANTIBIOTICS WHICH ENDS TOMORROW 02/15/17 Reported Meds & Prescriptions Reported Meds & Active Scripts Active Tylenol (Acetaminophen) 325 Mg Tab 325 Mg PO Q4H PRN Zofran (Ondansetron HCl) 4 Mg Tab 4 Mg PO Q6HR PRN Hydrocodone-Acetamin 5-325 mg (Hydrocodone/Acetaminophen) 5 Mg-325 Mg Tablet 1 Tab PO QID Lisinopril 10 Mg Tab 10 Mg PO DAILY Reported Hydrocodone-Acetaminophen 5-325 mg Tab 1 Tab PO Q4H PRN Vitamin C (Ascorbic Acid) 250 Mg Tab 250 Mg PO DAILY B-12 (Cyanocobalamin) 1,000 Mcg Subl 1,000 Mcg SL DAILY Review of Systems Except as stated in HPI: all other systems reviewed are Neg Physical Exam Narrative GENERAL: Awake and alert and in no acute distress. She is moving around without difficulty. SKIN: Warm and dry. HEAD: Normocephalic/atraumatic. EYES: Edema of the conjunctive of the left eye. There is some conjunctival injection. No foreign body noted under her lids. NECK: Normal range of motion. CARDIOVASCULAR: Regular rate and rhythm. RESPIRATORY: Nonlabored respirations. MUSCULOSKELETAL: Atraumatic. NEUROLOGICAL: Nonfocal. PSYCHIATRIC: Appropriate mood and affect. Data Data Last Documented VS Vital Signs Date Time Temp Pulse Resp B/P (MAP) Pulse Ox O2 Delivery O2 Flow Rate FiO2 18 13:47 98.4 65 18 173/84 (113) 100 MDM Medical Decision Making Medical Screen Exam Complete: Yes Emergency Medical Condition: Yes Differential Diagnosis Differential diagnosis includes but is not limited to chemical irritation, allergic conjunctivitis, viral conjunctivitis, bacterial conjunctivitis, chronic dry eyes. Narrative Course This patient presents with the chief complaint of pinkeye on the left. My exam , she has allergic conjunctivitis. She has marked edema of the conjunctive which is compatible with allergic conjunctivitis. She will be discharged with a prescription for erythromycin to cover for possible bacterial conjunctivitis. She will be instructed to take an [id number] antihistamine such as Benadryl. Acular for discomfort. Diagnosis Primary Impression: Allergic conjunctivitis of left eye Patient Instructions: Conjunctivitis (DC), General Instructions Additional Instructions: [id number] Benadryl 2 every 4 hours until the swelling and redness of the left eye has resolved. Med/Other Pt SpecificInfo: Prescription(s) given Scripts Ketorolac Opth Drops (Acular Opth Drops) 0.5% Drops 1 DROP LEFT EYE QID for Pain/Inflammation, #5 ML 0 Refills Prov: Yani Reynoso MD 09/08/17 Erythromycin Opth Oint (Erythromycin Opth Oint) 5 Mg/Gm Oint 1 APPLIC LEFT EYE QID for Infection, #1 TUBE 0 Refills Prov: Yani Reynoso MD 09/08/17 Disposition: 01 DISCHARGE HOME Condition: Stable Yani Reynoso MD September 08, 2017 15:21
== END 2017-09-08 15:32 | disposition home or self-care (01) ==
LOC: NEPD 13:34
DX: H10.12 Acute atopic conjunctivitis, left eye (principal); I10 Essential (primary) hypertension; E78.00 Pure hypercholesterolemia, unspecified; F17.200 Nicotine dependence, unspecified, uncomplicated; Z87.39 Personal history of other diseases of the musculoskeletal system and connective tissue; Z87.09 Personal history of other diseases of the respiratory system; Z86.2 Personal history of diseases of the blood and blood-forming organs and certain disorders involving the immune mechanism; Z86.59 Personal history of other mental and behavioral disorders; Z87.448 Personal history of other diseases of urinary system
CPT/HCPCS: 99283

== ENCOUNTER 2017-09-10 13:23 | Emergency (ER) | payer OTHER ==
[~2017-09-10] VITALS: Ht 175.3 cm; Wt 84.0 kg
[~2017-09-10 13:23] MED LIST changes: +ERYTOIN10 LEFT EYE; +KETO1SOL3 LEFT EYE
[2017-09-10 13:26] VITALS: BP 143/90; PULSE 75; RESP 16; TEMP 98.2; O2SAT 99
[2017-09-10] MEDS ORDERED: PROPARACAINE HCL 0.5% OPHT SOLN 15 ML BTL LEFT EYE ONE (14:45)
[2017-09-10] MEDS ORDERED: FLUORESCEIN SOD 1 MG STRIP LEFT EYE ONE (14:45)
[2017-09-10] MEDS ORDERED: KETOROLAC TROMETHAMINE 60 MG/2 ML (IM) VIAL IM ONE (14:45)
[2017-09-10] MEDS ORDERED: NEOMYCIN/POLYMYX/DEXAMETH OPHT SUSP 5 ML BTL LEFT EYE SCH (15:00)
--- NOTE | 2017-09-10 15:05 | PD ---
HPI Chief Complaint: Eye Problems/Injury Time Seen by Provider: 14:23 Travel History International Travel<30 days: No Contact w/Intl Traveler<30days: No Traveled to known affect area: No History of Present Illness HPI 47-year-old female presents emergency department with worsening left thigh pain and swelling. Patient was seen 2 days ago and started on erythromycin ointment and nonsteroidal drops for the eye. Patient states she was unable to get the nonsteroidal drops. She has continued tearing and redness and pain in the left side. She also is complaining of bilateral ear pain more on the left than the right at this time. Patient has history of otitis media in the past. Patient has no previous history of allergies to medications other than penicillin. Pain is currently 10 out of 10. PFSH Past Medical History Hx Anticoagulant Therapy: No Anemia: Yes Asthma: Yes Autoimmune Disease: No Blood Disorders: No Anxiety: Yes Depression: Yes Cancer: Yes (Ovarian CA) Cardiovascular Problems: No High Cholesterol: Yes Chemotherapy: No COPD: No Cerebrovascular Accident: No Diabetes: No Diminished Hearing: No Endocrine: No Glaucoma: No Genitourinary: Yes Hepatitis: No Hiatal Hernia: No Hypertension: Yes Immune Disorder: Yes (PSORIASIS) Musculoskeletal: Yes (arthritis) Neurologic: No Psychiatric: No Reproductive: Yes (ovarian sx) Respiratory: No Integumentary: Yes (PSORIASIS) Immunizations Current: No Pneumonia: Yes Thyroid Disease: No Triglycerides - High: No Ulcer: Yes PNEUMOCCOCAL Vaccine (Year): 2 ?: Not Menopausal: Yes : 5 Para: 4 Miscarriage: 1 Ectopic : Yes Past Surgical History Abdominal Surgery: Yes ( AND OVARIAN SURGERY) AICD: No Cardiac Surgery: Yes (vascualr R leg 2013) Section: Yes Ear Surgery: No Endocrine Surgery: No Eye Surgery: No Genitourinary Surgery: No Gynecologic Surgery: Yes ( , RIGHT OVARY, cervix, L Breast tumor) Hysterectomy: No Joint Replacement: No Oral Surgery: No Pacemaker: No Thoracic Surgery: No Tonsillectomy: Yes Other Surgery: Yes (RIGHT OVARY REMOVED, TONSILLECTOMY) Social History Alcohol Use: No Tobacco Use: Yes (1 PPD) Substance Use: No Allergies-Medications (Allergen,Severity, Reaction): Coded Allergies: penicillin G (Verified Allergy, Severe, Swelling, 04/18/17) Uncoded Allergies: MDRO (Adverse Reaction, Unknown, 02/14/17) PATIENT STATES SHE HAD MRSA TWO WEEKS AGO ON [place]; HAS BEEN ON COURSE OF ANTIBIOTICS WHICH ENDS TOMORROW 02/15/17 Reported Meds & Prescriptions Reported Meds & Active Scripts Active Acular Opth Drops (Ketorolac Tromethamine) 0.5% Drops 1 Drop LEFT EYE QID Erythromycin Opth Oint 5 Mg/Gm Oint 1 Applic LEFT EYE QID Tylenol (Acetaminophen) 325 Mg Tab 325 Mg PO Q4H PRN Zofran (Ondansetron HCl) 4 Mg Tab 4 Mg PO Q6HR PRN Hydrocodone-Acetamin 5-325 mg (Hydrocodone/Acetaminophen) 5 Mg-325 Mg Tablet 1 Tab PO QID Lisinopril 10 Mg Tab 10 Mg PO DAILY Reported Hydrocodone-Acetaminophen 5-325 mg Tab 1 Tab PO Q4H PRN Vitamin C (Ascorbic Acid) 250 Mg Tab 250 Mg PO DAILY B-12 (Cyanocobalamin) 1,000 Mcg Subl 1,000 Mcg SL DAILY Review of Systems Except as stated in HPI: all other systems reviewed are Neg General / Constitutional: Positive: Chills, No: Fever Eyes: Positive: Blurred Vision, Photophobia, Redness, Pain, Tearing, No: Diploplia, Drainage, Foreign Body Sensation, Blind Spots, Visual changes, Blindness HENT: Positive: Headaches, Congestion, Earache, No: Vertigo, Lightheadedness, Sore Throat, Rhinitis, Rhinorrhea, Nosebleed, Neck Stiffness, Neck Pain, Gingival Bleeding, Dental Difficulties, Ear Discharge Cardiovascular: No: Chest Pain or Discomfort Respiratory: No: Shortness of Breath Gastrointestinal: No: Abdominal Pain Genitourinary: No: Dysuria Musculoskeletal: No: Pain Skin: No Rash Neurologic: No: Weakness Psychiatric: No: Depression Endocrine: No: Polydipsia Hematologic/Lymphatic: No: Easy Bruising Physical Exam Narrative GENERAL: Patient appears in mild to moderate distress per SKIN: Warm and dry. Normal color. Normal turgor. No rash. HEAD: Atraumatic. Normocephalic. Patient has sinus tenderness with palpation and percussion of both frontal and maxillary sinuses more on the left than the right EYES: Pupils equal and round. No scleral icterus. Left eye has moderate to severe conjunctival injection with tearing from the left eye. The right eye appears normal. Fluorescein dye is applied, and would lamp exam shows no obvious corneal abrasion, dendritic findings, or ulcerations. ENT: No nasal bleeding or discharge. Mucous membranes pink and moist. Both TMs are dull with injection present bilaterally. NECK: Trachea midline. No JVD. CARDIOVASCULAR: Regular rate and rhythm. RESPIRATORY: No accessory muscle use. Clear to auscultation. Breath sounds equal bilaterally. GASTROINTESTINAL: Abdomen soft, non-tender, nondistended. Hepatic and splenic margins not palpable. MUSCULOSKELETAL: Extremities without clubbing, cyanosis, or edema. No obvious deformities. NEUROLOGICAL: Awake and alert. No obvious cranial nerve deficits. Motor grossly within normal limits. Five out of 5 muscle strength in the arms and legs. Normal speech. PSYCHIATRIC: Appropriate mood and affect; insight and judgment normal. Data Data Last Documented VS Vital Signs Date Time Temp Pulse Resp B/P (MAP) Pulse Ox O2 Delivery O2 Flow Rate FiO2 09/10/17 13:26 98.2 75 16 143/90 (107) 99 Orders Orders Proparacaine 0.5% Opth Soln (Alcaine 0.5 (09/10/17 14:45) Fluorescein Strip (Qsoss-[id number] A.T.) (09/10/17 14:45) Ketorolac Inj (Toradol Inj) (09/10/17 14:45) Neomycin/Polym/Dexam Opht Susp (Maxitrol (09/10/17 15:00) MDM Medical Decision Making Medical Screen Exam Complete: Yes Emergency Medical Condition: Yes Medical Record Reviewed: Yes Differential Diagnosis Left-sided conjunctivitis. Medication reaction. Left eye pain. Otitis media. Narrative Course Patient is to discontinue the erythromycin ointment as I feel this is a causative agent of her current symptoms. Patient will be treated with neomycin/polymyxin/eczema at the zone ophthalmic drops every 6 hours to the left eye while awake. Patient also treated with Levaquin 500 mg daily for the next 10 days. Patient also given ibuprofen 800 mg 3 times daily as needed #15. 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 Patient can return as needed. Diagnosis Primary Impression: Conjunctivitis Qualified Codes: H10.32 - Unspecified acute conjunctivitis, left eye Patient Instructions: Conjunctivitis (ED), General Instructions Additional Instructions: Patient is to discontinue the erythromycin ointment as I feel this is a causative agent of her current symptoms. Patient will be treated with neomycin/polymyxin/eczema at the zone ophthalmic drops every 6 hours to the left eye while awake. Patient also treated with Levaquin 500 mg daily for the next 10 days. Patient also given ibuprofen 800 mg 3 times daily as needed #15. 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 Patient can return as needed. Med/Other Pt SpecificInfo: Prescription(s) given Disposition: 01 DISCHARGE HOME Condition: Stable Mazin Godinez September 10, 2017 15:05
[2017-09-10] MEDS ORDERED: LEVA500T33 PO (15:07)
[2017-09-10] MEDS ORDERED: NEOMSUS LEFT EYE (15:07)
[2017-09-10] MEDS ORDERED: IBUP1TAB7 PO (15:07)
== END 2017-09-10 15:48 | disposition home or self-care (01) ==
LOC: NEPD 13:23
DX: H10.32 Unspecified acute conjunctivitis, left eye (principal); F17.200 Nicotine dependence, unspecified, uncomplicated; I10 Essential (primary) hypertension
CPT/HCPCS: 96372; 99283; J1885

== ENCOUNTER 2017-09-17 16:49 | Emergency (ER) | payer OTHER ==
[~2017-09-17] VITALS: Ht 175.3 cm; Wt 84.0 kg
[~2017-09-17 16:49] MED LIST changes: +IBUP1TAB7 PO; +LEVA500T33 PO; +NEOMSUS LEFT EYE
[2017-09-17 16:59] VITALS: BP 113/62; PULSE 77; RESP 18; O2SAT 94
--- NOTE | 2017-09-17 17:04 | PD ---
HPI Chief Complaint: Alcohol/Drug Intoxication Time Seen by Provider: 16:54 Travel History International Travel<30 days: No Contact w/Intl Traveler<30days: No Traveled to known affect area: No History of Present Illness HPI This is a 47-year-old female who presents under police custody for medical clearance to go to penitentiary. According to paramedics the patient was being arrested for criminal mischief and resisting arrest. Immediately after the patient was placed into the Car she "passed out." According to paramedics she has been intermittently responsive and agitated. She selectively responds to questions and commands according to paramedics. When the patient initially arrived she appeared to be unconscious but was able to hear the entire conversation and then recall pieces of the conversation after she eventually woke up. She is now awake and combative and cursing and screaming at staff. Endorses alcohol use today. Her only complaint is that the handcuffs need to be taken off. PFSH Past Medical History Hx Anticoagulant Therapy: No Anemia: Yes Asthma: Yes Autoimmune Disease: No Blood Disorders: No Anxiety: Yes Depression: Yes Cancer: Yes (Ovarian CA) Cardiovascular Problems: No High Cholesterol: Yes Chemotherapy: No COPD: No Cerebrovascular Accident: No Diabetes: No Diminished Hearing: No Endocrine: No Glaucoma: No Genitourinary: Yes Hepatitis: No Hiatal Hernia: No Hypertension: Yes Immune Disorder: Yes (PSORIASIS) Musculoskeletal: Yes (arthritis) Neurologic: No Psychiatric: No Reproductive: Yes (ovarian sx) Respiratory: No Integumentary: Yes (PSORIASIS) Immunizations Current: No Pneumonia: Yes Thyroid Disease: No Triglycerides - High: No Ulcer: Yes PNEUMOCCOCAL Vaccine (Year): 2 Menopausal: Yes : 5 Para: 4 Miscarriage: 1 Ectopic : Yes Past Surgical History Abdominal Surgery: Yes ( AND OVARIAN SURGERY) AICD: No Cardiac Surgery: Yes (vascualr R leg 2013) Section: Yes Ear Surgery: No Endocrine Surgery: No Eye Surgery: No Genitourinary Surgery: No Gynecologic Surgery: Yes ( , RIGHT OVARY, cervix, L Breast tumor) Hysterectomy: No Joint Replacement: No Oral Surgery: No Pacemaker: No Thoracic Surgery: No Tonsillectomy: Yes Other Surgery: Yes (RIGHT OVARY REMOVED, TONSILLECTOMY) Social History Alcohol Use: No Tobacco Use: Yes (1 PPD) Substance Use: No Allergies-Medications (Allergen,Severity, Reaction): Coded Allergies: penicillin G (Verified Allergy, Severe, Swelling, 09/17/17) Uncoded Allergies: MDRO (Adverse Reaction, Unknown, 02/14/17) PATIENT STATES SHE HAD MRSA TWO WEEKS AGO ON [facility]; HAS BEEN ON COURSE OF ANTIBIOTICS WHICH ENDS TOMORROW 02/15/17 Reported Meds & Prescriptions Reported Meds & Active Scripts Active [id number] Opth Drops 3.5-10,000-1 Ng-Units-% Susp 1 Drop LEFT EYE Q4H 7 Days Ibuprofen 800 Mg Tab 800 Mg PO Q8H PRN Levaquin (Levofloxacin) 500 Mg Tablet 500 Mg PO DAILY 10 Days Acular Opth Drops (Ketorolac Tromethamine) 0.5% Drops 1 Drop LEFT EYE QID Erythromycin Opth Oint 5 Mg/Gm Oint 1 Applic LEFT EYE QID Tylenol (Acetaminophen) 325 Mg Tab 325 Mg PO Q4H PRN Zofran (Ondansetron HCl) 4 Mg Tab 4 Mg PO Q6HR PRN Hydrocodone-Acetamin 5-325 mg (Hydrocodone/Acetaminophen) 5 Mg-325 Mg Tablet 1 Tab PO QID Lisinopril 10 Mg Tab 10 Mg PO DAILY Reported Hydrocodone-Acetaminophen 5-325 mg Tab 1 Tab PO Q4H PRN Vitamin C (Ascorbic Acid) 250 Mg Tab 250 Mg PO DAILY B-12 (Cyanocobalamin) 1,000 Mcg Subl 1,000 Mcg SL DAILY Review of Systems ROS Limitations: Intoxication Except as stated in HPI: all other systems reviewed are Neg Physical Exam Exam Limitations: Intoxication Narrative GENERAL: Disheveled female in no acute distress awake and alert, slurred speech. SKIN: Warm and dry. HEAD: Atraumatic. Normocephalic. EYES: Pupils equal and round. No scleral icterus. No injection or drainage. ENT: No nasal bleeding or discharge. Mucous membranes pink and moist. NECK: Trachea midline. No JVD. CARDIOVASCULAR: Regular rate and rhythm. No murmur appreciated. RESPIRATORY: No accessory muscle use. Clear to auscultation. Breath sounds equal bilaterally. GASTROINTESTINAL: Abdomen soft, non-tender, nondistended. Hepatic and splenic margins not palpable. MUSCULOSKELETAL: No obvious deformities. No clubbing. No cyanosis. No edema. NEUROLOGICAL: Arouse to verbal stimuli. No obvious cranial nerve deficits. Slurred speech. Data Data Last Documented VS Vital Signs Date Time Temp Pulse Resp B/P (MAP) Pulse Ox O2 Delivery O2 Flow Rate FiO2 09/17/17 18:46 09/17/17 17:08 72 14 94 Room Air Orders Orders Basic Metabolic Panel (Bmp) (09/17/17 17:02) Complete Blood Count With Diff (09/17/17 17:02) Drug Screen, Random Urine (09/17/17 17:02) Alcohol (Ethanol) (09/17/17 17:02) Labs Laboratory Tests Test 09/17/17 17:10 White Blood Count 7.3 TH/MM3 Red Blood Count 4.50 MIL/MM3 Hemoglobin 14.8 GM/DL Hematocrit 43.1 % Mean Corpuscular Volume 95.9 FL Mean Corpuscular Hemoglobin 33.0 PG Mean Corpuscular Hemoglobin Concent 34.4 % Red Cell Distribution Width 12.7 % Platelet Count 165 TH/MM3 Mean Platelet Volume 9.5 FL Neutrophils (%) (Auto) 60.9 % Lymphocytes (%) (Auto) 29.3 % Monocytes (%) (Auto) 6.3 % Eosinophils (%) (Auto) 2.5 % Basophils (%) (Auto) 1.0 % Neutrophils # (Auto) 4.5 TH/MM3 Lymphocytes # (Auto) 2.2 TH/MM3 Monocytes # (Auto) 0.5 TH/MM3 Eosinophils # (Auto) 0.2 TH/MM3 Basophils # (Auto) 0.1 TH/MM3 CBC Comment DIFF FINAL Differential Comment Blood Urea Nitrogen 12 MG/DL Creatinine 0.80 MG/DL Random Glucose 86 MG/DL Calcium Level 8.0 MG/DL Sodium Level 143 MEQ/L Potassium Level 3.6 MEQ/L Chloride Level 111 MEQ/L Carbon Dioxide Level 21.1 MEQ/L Anion Gap 11 MEQ/L Estimat Glomerular Filtration Rate 77 ML/MIN Ethyl Alcohol Level 239 MG/DL MDM Medical Decision Making Medical Screen Exam Complete: Yes Emergency Medical Condition: Yes Medical Record Reviewed: Yes Differential Diagnosis Alcohol intoxication, overdose, syncope, malingering Narrative Course This is a 47-year-old female who is brought in by police for medical clearance to go to penitentiary. She appears intoxicated. We will check basic lab work. 174: I have been informed that the patient eloped. Apparently the police dropped their charges and took off her handcuffs. The patient then eloped and was not stopped by security or staff. Diagnosis Primary Impression: Intoxication Additional Impression: History of elopement from health care facility Med/Other Pt SpecificInfo: No Change to Meds Disposition: 07 AGAINST MEDICAL ADVICE Condition: Stable Ignacio Shelton September 17, 2017 17:04
[2017-09-17 17:08] VITALS: BP 113/62; PULSE 72; RESP 14; O2SAT 94
[2017-09-17 17:47] LABS: AUTOMATED NEUTROPHIL # 4.5 TH/MM3 (1.8-7.7); BASOPHIL # 0.1 TH/MM3 (0-0.2); EOSINOPHIL # 0.2 TH/MM3 (0-0.4); EOSINOPHIL % 2.5 % (0.0-4.0); HEMATOCRIT 43.1 % (35.0-46.0); HEMOGLOBIN 14.8 GM/DL (11.6-15.3); LYMPH % 29.3 % (9.0-44.0); LYMPHOCYTE # 2.2 TH/MM3 (1.0-4.8); MEAN CELL VOLUME 95.9 FL (80.0-100.0); MEAN CORPUSCULAR HGB CONC 34.4 % (32.0-36.0); MEAN PLATELET VOLUME 9.5 FL (7.0-11.0); MONO % 6.3 % (0.0-8.0); MONOCYTE # 0.5 TH/MM3 (0-0.9); NEUT % 60.9 % (16.0-70.0); PLATELET COUNT 165 TH/MM3 (150-450); RED CELL DISTRIBUTION WIDTH 12.7 % (11.6-17.2); WHITE BLOOD COUNT 7.3 TH/MM3 (4.0-11.0)
[2017-09-17 17:52] LABS: BICARBONATE 21.1 MEQ/L (21.0-32.0); CREATININE 0.8 MG/DL (0.50-1.00)
== END 2017-09-17 19:19 | disposition left against medical advice (07) ==
LOC: NEPD 16:49
DX: F10.129 Alcohol abuse with intoxication, unspecified (principal); F17.200 Nicotine dependence, unspecified, uncomplicated; I10 Essential (primary) hypertension; Y90.7 Blood alcohol level of 200-239 mg/100 ml; Z79.899 Other long term (current) drug therapy
CPT/HCPCS: 80048; 80307; 85025; 99283

== ENCOUNTER 2017-09-29 19:56 | Emergency (ER) | payer OTHER ==
[~2017-09-29] VITALS: Ht 165.1 cm; Wt 75.0 kg
[2017-09-29 20:04] VITALS: BP 150/71; PULSE 82; RESP 12; TEMP 98.3; O2SAT 93
--- NOTE | 2017-09-29 20:34 | PD ---
HPI . Medical clearance Chief Complaint: Medical Clearance Time Seen by Provider: 20:12 Travel History International Travel<30 days: No Contact w/Intl Traveler<30days: No Traveled to known affect area: No History of Present Illness HPI Patient presents to us via ED for medical clearance to go to shelter. The officer reports that she was arrested for biting someone. She has reportedly been drinking vodka all day today. He states that she started complaining with right shoulder pain from a previous shoulder injury after he had arrested her. She requested to come to the hospital. She is now acting as if she is passed out. She reportedly had to be bodily removed from the police cruiser. PFSH Past Medical History Hx Anticoagulant Therapy: No Anemia: Yes Asthma: Yes Autoimmune Disease: No Blood Disorders: No Anxiety: Yes Depression: Yes Cancer: Yes (Ovarian CA) Cardiovascular Problems: No High Cholesterol: Yes Chemotherapy: No COPD: No Cerebrovascular Accident: No Diabetes: No Diminished Hearing: No Endocrine: No Glaucoma: No Genitourinary: Yes Hepatitis: No Hiatal Hernia: No Hypertension: Yes Immune Disorder: Yes (PSORIASIS) Musculoskeletal: Yes (arthritis) Neurologic: No Psychiatric: No Reproductive: Yes (ovarian sx) Respiratory: No Integumentary: Yes (PSORIASIS) Immunizations Current: No Pneumonia: Yes Thyroid Disease: No Triglycerides - High: No Ulcer: Yes PNEUMOCCOCAL Vaccine (Year): 2 ?: Unknown Menopausal: Yes : 5 Para: 4 Miscarriage: 1 Ectopic : Yes Past Surgical History Surgical History: Unable to Obtain Abdominal Surgery: Yes ( AND OVARIAN SURGERY) AICD: No Cardiac Surgery: Yes (vascualr R leg 2013) Section: Yes Ear Surgery: No Endocrine Surgery: No Eye Surgery: No Genitourinary Surgery: No Gynecologic Surgery: Yes ( , RIGHT OVARY, cervix, L Breast tumor) Hysterectomy: No Joint Replacement: No Oral Surgery: No Pacemaker: No Thoracic Surgery: No Tonsillectomy: Yes Other Surgery: Yes (RIGHT OVARY REMOVED, TONSILLECTOMY) Social History Alcohol Use: No Tobacco Use: Yes (1 PPD) Substance Use: No Allergies-Medications (Allergen,Severity, Reaction): Coded Allergies: penicillin G (Verified Allergy, Severe, Swelling, 09/17/17) Uncoded Allergies: MDRO (Adverse Reaction, Unknown, 02/14/17) PATIENT STATES SHE HAD MRSA TWO WEEKS AGO ON [place]; HAS BEEN ON COURSE OF ANTIBIOTICS WHICH ENDS TOMORROW 02/15/17 Reported Meds & Prescriptions Reported Meds & Active Scripts Active Mjuiudpw-Twodwlows-PJ Opth Drops 3.5-10,000-1 Ng-Units-% Susp 1 Drop LEFT EYE Q4H 7 Days Ibuprofen 800 Mg Tab 800 Mg PO Q8H PRN Levaquin (Levofloxacin) 500 Mg Tablet 500 Mg PO DAILY 10 Days Acular Opth Drops (Ketorolac Tromethamine) 0.5% Drops 1 Drop LEFT EYE QID Erythromycin Opth Oint 5 Mg/Gm Oint 1 Applic LEFT EYE QID Tylenol (Acetaminophen) 325 Mg Tab 325 Mg PO Q4H PRN Zofran (Ondansetron HCl) 4 Mg Tab 4 Mg PO Q6HR PRN Hydrocodone-Acetamin 5-325 mg (Hydrocodone/Acetaminophen) 5 Mg-325 Mg Tablet 1 Tab PO QID Lisinopril 10 Mg Tab 10 Mg PO DAILY Reported Hydrocodone-Acetaminophen 5-325 mg Tab 1 Tab PO Q4H PRN Vitamin C (Ascorbic Acid) 250 Mg Tab 250 Mg PO DAILY B-12 (Cyanocobalamin) 1,000 Mcg Subl 1,000 Mcg SL DAILY Review of Systems ROS Limitations: Intoxication Physical Exam Narrative GENERAL: Patient is lying on the stretcher in cuffs in shackles. Her eyes are closed. She smells heavily of alcohol. SKIN: warm/dry. HEAD: Normocephalic. Atraumatic. EYES: Pupils equal and round. Extraocular movements are intact. ENT: Mucous membranes pink and moist. NECK: Supple. Full range of motion without pain.. CARDIOVASCULAR: Regular rate and rhythm. RESPIRATORY: No accessory muscle use. Clear to auscultation. MUSCULOSKELETAL: She has an apparent dislocation of the right shoulder. That is , there is flattening of her right deltoid. However, she does have full range of motion of right shoulder. She is distally neurovascularly intact. NEUROLOGICAL: Awake and alert. No obvious cranial nerve deficits. Motor grossly within normal limits. Normal speech. PSYCHIATRIC: Appropriate mood and affect; insight and judgment normal. Data Data Last Documented VS Vital Signs Date Time Temp Pulse Resp B/P (MAP) Pulse Ox O2 Delivery O2 Flow Rate FiO2 09/29/17 20:04 98.3 82 12 150/71 (97) 93 Orders Orders Ed Discharge Order (6/10/18 20:28) [facility] Medical Decision Making Medical Screen Exam Complete: Yes Emergency Medical Condition: Yes Differential Diagnosis Differential diagnosis of joint pain includes but is not limited to arthritis, gout, sprain/strain, fracture, dislocation, bursitis Narrative Course This patient presented to us via PD for evaluation of right shoulder pain. She had been arrested for biting someone. She has reportedly been drinking vodka all day today. The patient was lying on the stretcher as if passed out. The patient could not safely be conscious sedated because of her acute alcohol intoxication. Therefore, I have attempted to reduce the shoulder without medication. The patient then started yelling loudly but no one was going to touch her before she saw her boat cleaner. She is medically clear for shelter. She can have her shoulder tended to want she is out of shelter. It is not a life or limb threatening emergency. Diagnosis Primary Impression: Acute alcohol intoxication Qualified Codes: F10.929 - Alcohol use, unspecified with intoxication, unspecified Patient Instructions: General Instructions Departure Forms: Tests/Procedures Disposition: [address] LAW ENFORCEMNT Condition: Stable Yani Reynoso MD Sep 29, 2017 20:34
== END 2017-09-29 20:36 ==
LOC: NEPD 19:56
DX: F10.929 Alcohol use, unspecified with intoxication, unspecified (principal); M25.511 Pain in right shoulder; Y35.93XA Legal intervention, means unspecified, suspect injured, initial encounter; E78.2 Mixed hyperlipidemia; I10 Essential (primary) hypertension; J45.909 Unspecified asthma, uncomplicated; F32.9 Major depressive disorder, single episode, unspecified; F17.210 Nicotine dependence, cigarettes, uncomplicated; Z85.43 Personal history of malignant neoplasm of ovary; Z88.0 Allergy status to penicillin; Z79.899 Other long term (current) drug therapy
CPT/HCPCS: 99281

== ENCOUNTER 2017-09-29 22:20 | Emergency (ER) | payer OTHER ==
[2017-09-29 23:18] LABS: AUTOMATED NEUTROPHIL # 3.4 TH/MM3 (1.8-7.7); BASOPHIL # 0.1 TH/MM3 (0-0.2); BASOPHIL % 1.3 % (0.0-2.0); EOSINOPHIL # 0.4 TH/MM3 (0-0.4); EOSINOPHIL % 4.5 % (0.0-4.0); HEMATOCRIT 44.4 % (35.0-46.0); HEMOGLOBIN 15.8 GM/DL (11.6-15.3); LYMPH % 42.5 % (9.0-44.0); LYMPHOCYTE # 3.3 TH/MM3 (1.0-4.8); MEAN CELL VOLUME 94.6 FL (80.0-100.0); MEAN CORPUSCULAR HEMOGLOBIN 33.7 PG (27.0-34.0); MEAN CORPUSCULAR HGB CONC 35.6 % (32.0-36.0); MEAN PLATELET VOLUME 8.4 FL (7.0-11.0); MONO % 8.3 % (0.0-8.0); MONOCYTE # 0.6 TH/MM3 (0-0.9); NEUT % 43.4 % (16.0-70.0); PLATELET COUNT 187 TH/MM3 (150-450); RED BLOOD COUNT 4.69 MIL/MM3 (4.00-5.30); RED CELL DISTRIBUTION WIDTH 12.8 % (11.6-17.2); WHITE BLOOD COUNT 7.8 TH/MM3 (4.0-11.0)
[2017-09-29 23:21] LABS: AMORPHOUS SEDIMENT, URINE RARE; BILIRUBIN, URINE NEG (NEG); BLOOD, URINE NEG (NEG); GLUCOSE,URINE NEG (NEG); KETONE, URINE NEG (NEG); NITRITE,URINE NEG (NEG); SQUAMOUS EPITHELIAL CELL URINE 1 /hpf (0-5); URINE COLOR LIGHT-YELLOW (YELLW/STRAW); URINE LEUKOCYTE ESTERASE NEG (NEG)
[2017-09-29 23:30] LABS: ALBUMIN 3.4 GM/DL (3.4-5.0); ALT (GPT) 28 U/L (10-53); AST (GOT) 28 U/L (15-37); BICARBONATE 21.6 MEQ/L (21.0-32.0); BLOOD UREA NITROGEN 7 MG/DL (7-18); CALCIUM 8.6 MG/DL (8.5-10.1); CHLORIDE 112 MEQ/L (98-107); CREATININE 0.71 MG/DL (0.50-1.00); GLOMERULAR FILTRATION RATE 88 ML/MIN (>89); GLUCOSE,RANDOM 85 MG/DL (74-106); SODIUM (NA) 145 MEQ/L (136-145)
[2017-09-29 23:33] LABS: ALKALINE PHOSPHATASE 60 U/L (45-117); TOTAL BILIRUBIN ADULT 0.3 MG/DL (0.2-1.0); TOTAL PROTEIN 6.9 GM/DL (6.4-8.2)
[2017-09-29 23:34] LABS: ACETAMINOPHEN LESS THAN 2.0 MCG/ML (10.0-30.0); PROTHROMBIN TIME - PATIENT 9.7 SEC (9.8-11.6)
--- NOTE | 2017-09-29 23:51 | RADRPT ---
EXAM DATE: 09/29/2017 11:25 PM EDT AGE/SEX: 47 years / Female INDICATIONS: Chest pain for 3 days. CLINICAL DATA: This is the patient's initial encounter. Patient reports that signs and symptoms have been present for 1 day and indicates a pain score of 10/10. MEDICAL/SURGICAL HISTORY: None. None. COMPARISON: No prior exams available for comparison. FINDINGS: A single AP view of the chest demonstrates the lungs to be symmetrically aerated without evidence of mass, infiltrate or effusion. The cardiomediastinal contours are unremarkable. Osseous structures a re intact. CONCLUSION: No acute cardiopulmonary disease identified. Electronically signed by: Steve Cerda MD 09/29/2017 11:49 PM EDT
--- NOTE | 2017-09-29 23:52 | RADRPT ---
EXAM DATE: 09/29/2017 11:29 PM EDT AGE/SEX: 47 years / Female INDICATIONS: Right shoulder pain; possible dislocation. CLINICAL DATA: This is the patient's initial encounter. Patient reports that signs and symptoms have been present for 1 day and indicates a pain score of 10/10. MEDICAL/SURGICAL HISTORY: None. None. COMPARISON: No prior exams available for comparison. FINDINGS: 2 views right shoulder. Bone alignment within normal limits. No evidence of fracture. Moderate hypert rophic change of the acromioclavicular joint. Glenohumeral joint within normal limits. CONCLUSION: 1. Bone alignment within normal limits. 2. Moderate acromioclavicular joint arthrosis. Electronically signed by: Steve Cerda MD 09/29/2017 11:50 PM EDT
--- NOTE | 2017-09-30 00:06 | PD ---
HPI Chief Complaint: Medical Clearance Time Seen by Provider: 22:42 Travel History International Travel<30 days: No Contact w/Intl Traveler<30days: No History of Present Illness HPI The patient is a 47 year old female who presents to the [facility] emergency department with a history of being brought in by the police for the second time today related to altered mentation. Initially the patient was seen earlier today by for medical clearance in order to be taken to shelter. The patient at that time was under arrest for biting someone. The patient was belligerent in the emergency department. The patient had complained of shoulder pain, however when an evaluation was attempted the patient became agitated and refused additional evaluation. According to the officer at the bedside, the patient then arrived back at the shelter and reportedly had a decreased level of consciousness. The patient would not awaken in spite of sternal rub and painful stimulation, therefore the patient was sent back to the emergency department for evaluation and treatment. The patient on arrival is belligerent, yelling, kicking at the staff. The patient was placed in restraints for her and the staff safety. The patient again reports having right shoulder pain. The patient additionally reports suicidal ideations reports that she did take a handful of hydrocodone earlier today. The patient has been in custody since according to the officer at the bedside between 6 and 6:30 PM. No blood work was done earlier today, the patient on further questioning while I am in the room is reporting that she will cooperate for laboratory studies and imaging of her right shoulder. Patient denies having any other acute complaints. She reports that she has been drinking vodka earlier today. [facility] Past Medical History Narrative Medical The patient's past medical history is significant for asthma, anemia, anxiety, depression, history of ovarian cancer, hyperlipidemia, psoriasis, arthritis. Hx Anticoagulant Therapy: No Anemia: Yes Asthma: Yes Autoimmune Disease: No Blood Disorders: No Anxiety: Yes Depression: Yes Cancer: Yes (Ovarian CA) Cardiovascular Problems: No High Cholesterol: Yes Chemotherapy: No COPD: No Cerebrovascular Accident: No Diabetes: No Diminished Hearing: No Endocrine: No Glaucoma: No Genitourinary: Yes Hepatitis: No Hiatal Hernia: No Hypertension: Yes Immune Disorder: Yes (PSORIASIS) Musculoskeletal: Yes (arthritis) Neurologic: No Psychiatric: No Reproductive: Yes (ovarian sx) Respiratory: No Integumentary: Yes (PSORIASIS) Immunizations Current: No Pneumonia: Yes Thyroid Disease: No Triglycerides - High: No Ulcer: Yes PNEUMOCCOCAL Vaccine (Year): 2 Menopausal: Yes : 5 Para: 4 Miscarriage: 1 Ectopic : Yes Past Surgical History Narrative Surgical The patient's past surgical history is significant for , ovary surgery , left breast tumor resection, history of vascular surgery on the right leg, tonsillectomy. Abdominal Surgery: Yes ( AND OVARIAN SURGERY) AICD: No Cardiac Surgery: Yes (vascualr R leg 2014) Section: Yes Ear Surgery: No Endocrine Surgery: No Eye Surgery: No Genitourinary Surgery: No Gynecologic Surgery: Yes ( , RIGHT OVARY, cervix, L Breast tumor) Hysterectomy: No Joint Replacement: No Oral Surgery: No Pacemaker: No Thoracic Surgery: No Tonsillectomy: Yes Other Surgery: Yes (RIGHT OVARY REMOVED, TONSILLECTOMY) Social History Alcohol Use: Yes (Vodka earlier today) Tobacco Use: Yes (1 PPD) Substance Use: No Allergies-Medications (Allergen,Severity, Reaction): Coded Allergies: penicillin G (Verified Allergy, Severe, Swelling, 09/17/17) Uncoded Allergies: MDRO (Adverse Reaction, Unknown, 02/14/17) PATIENT STATES SHE HAD MRSA TWO WEEKS AGO ON ARMS; HAS BEEN ON COURSE OF ANTIBIOTICS WHICH ENDS TOMORROW 02/15/17 Reported Meds & Prescriptions Reported Meds & Active Scripts Active Shoqidnx-[id number] Opth Drops 3.5-10,000-1 Ng-Units-% Susp 1 Drop LEFT EYE Q4H 7 Days Ibuprofen 800 Mg Tab 800 Mg PO Q8H PRN Levaquin (Levofloxacin) 500 Mg Tablet 500 Mg PO DAILY 10 Days Acular Opth Drops (Ketorolac Tromethamine) 0.5% Drops 1 Drop LEFT EYE QID Erythromycin Opth Oint 5 Mg/Gm Oint 1 Applic LEFT EYE QID Tylenol (Acetaminophen) 325 Mg Tab 325 Mg PO Q4H PRN Zofran (Ondansetron HCl) 4 Mg Tab 4 Mg PO Q6HR PRN Hydrocodone-Acetamin 5-325 mg (Hydrocodone/Acetaminophen) 5 Mg-325 Mg Tablet 1 Tab PO QID Lisinopril 10 Mg Tab 10 Mg PO DAILY Reported Hydrocodone-Acetaminophen 5-325 mg Tab 1 Tab PO Q4H PRN Vitamin C (Ascorbic Acid) 250 Mg Tab 250 Mg PO DAILY B-12 (Cyanocobalamin) 1,000 Mcg Subl 1,000 Mcg SL DAILY Review of Systems Except as stated in HPI: all other systems reviewed are Neg General / Constitutional: No: Fever Eyes: No: Visual changes HENT: No: Headaches Cardiovascular: No: Chest Pain or Discomfort Respiratory: No: Shortness of Breath Gastrointestinal: No: Abdominal Pain Genitourinary: No: Dysuria Musculoskeletal: No: Pain Skin: No Rash Neurologic: Positive: Change in Mentation, No: Weakness, Focal Abnormalities, Slurred Speech, Sensory Disturbance Psychiatric: Positive: Depression, No: Homicidal Ideation Endocrine: No: Polydipsia Hematologic/Lymphatic: No: Easy Bruising Physical Exam Narrative General: The patient is a well-developed well-nourished female, agitated on arrival, placed in restraints for her and the staff safety as she was kicking and hitting at the staff. Head and Neck exam: Head is normocephalic atraumatic. Eyes: EOMI, pupils are equal round and reactive to light. Nose: Midline septum with pink mucous membranes Mouth: Dentition unremarkable. Moist mucus membranes. Posterior oropharynx is not erythematous. No tonsillar hypertrophy. Uvula midline. Airway patent. Neck: No palpable lymphadenopathy. No nuchal rigidity. No thyromegaly. Cardiovascular: Regular rate and rhythm without murmurs, gallops, or rubs. No pulse deficit to the extremities on simultaneous auscultation and palpation of her radial artery. Lungs: Clear to auscultation bilaterally. No wheezes, rhonchi, or rales. Abdomen: Soft, without tenderness to palpation in all 4 quadrants of the abdomen. No guarding, rebound, or rigidity. Normal bowel sounds are audible. No tenderness on palpation of McBurney's point. Extremities: No clubbing, cyanosis, or edema. 2+ pulses in all 4 extremities. The patient reports having proximal right shoulder pain. There is no deformity or crepitus. The patient has full range of motion. No signs of dislocation. Back: No spinous process tenderness to palpation. No costovertebral angle tenderness to palpation. Neurologic Exam: Grossly nonfocal. The patient has slightly slurred speech with an odor of alcohol about her. Skin Exam: No rash noted. Intact skin that is warm and dry. Data Data Orders Orders Complete Blood Count With Diff (09/29/17 22:50) Comprehensive Metabolic Panel (09/29/17 22:50) Prothrombin Time / Inr (Pt) (09/29/17 22:50) Act Partial Throm Time (Ptt) (09/29/17 22:50) Urinalysis - C+S If Indicated (09/29/17 22:50) Magnesium (Mg) (09/29/17 22:50) Chest, Single Ap (09/29/17 22:50) Iv Access Insert/Monitor (09/29/17 22:50) Ecg Monitoring (09/29/17 22:50) Oximetry (09/29/17 22:50) Drug Screen, Random Urine (09/29/17 22:50) Alcohol (Ethanol) (09/29/17 22:50) Salicylates (Aspirin) (09/29/17 22:50) Tylenol (Acetaminophen) (09/29/17 22:50) Shoulder, Limited(2vws) (09/29/17 22:50) Labs Laboratory Tests Test 09/29/17 23:06 White Blood Count 7.8 TH/MM3 Red Blood Count 4.69 MIL/MM3 Hemoglobin 15.8 GM/DL Hematocrit 44.4 % Mean Corpuscular Volume 94.6 FL Mean Corpuscular Hemoglobin 33.7 PG Mean Corpuscular Hemoglobin Concent 35.6 % Red Cell Distribution Width 12.8 % Platelet Count 187 TH/MM3 Mean Platelet Volume 8.4 FL Neutrophils (%) (Auto) 43.4 % Lymphocytes (%) (Auto) 42.5 % Monocytes (%) (Auto) 8.3 % Eosinophils (%) (Auto) 4.5 % Basophils (%) (Auto) 1.3 % Neutrophils # (Auto) 3.4 TH/MM3 Lymphocytes # (Auto) 3.3 TH/MM3 Monocytes # (Auto) 0.6 TH/MM3 Eosinophils # (Auto) 0.4 TH/MM3 Basophils # (Auto) 0.1 TH/MM3 CBC Comment DIFF FINAL Differential Comment Prothrombin Time 9.7 SEC Prothromb Time International Ratio 1.0 RATIO Activated Partial Thromboplast Time 23.8 SEC Urine Color LIGHT-YELLOW Urine Turbidity CLEAR Urine pH 5.0 Urine Specific Ogilvie 1.004 Urine Protein NEG mg/dL Urine Glucose (UA) NEG mg/dL Urine Ketones NEG mg/dL Urine Occult Blood NEG Urine Nitrite NEG Urine Bilirubin NEG Urine Urobilinogen LESS THAN 2.0 MG/DL Urine Leukocyte Esterase NEG Urine WBC 1 /hpf Urine Squamous Epithelial Cells 1 /hpf Urine Amorphous Sediment RARE Microscopic Urinalysis Comment CULT NOT INDICATED Blood Urea Nitrogen 7 MG/DL Creatinine 0.71 MG/DL Random Glucose 85 MG/DL Total Protein 6.9 GM/DL Albumin 3.4 GM/DL Calcium Level 8.6 MG/DL Magnesium Level 2.0 MG/DL Alkaline Phosphatase 60 U/L Aspartate Amino Transf (AST/SGOT) 28 U/L Alanine Aminotransferase (ALT/SGPT) 28 U/L Total Bilirubin 0.3 MG/DL Sodium Level 145 MEQ/L Potassium Level 4.0 MEQ/L Chloride Level 112 MEQ/L Carbon Dioxide Level 21.6 MEQ/L Anion Gap 11 MEQ/L Estimat Glomerular Filtration Rate 88 ML/MIN Salicylates Level 5.4 MG/DL Urine Opiates Screen NEG Acetaminophen Level LESS THAN 2.0 MCG/ML Urine Barbiturates Screen NEG Urine Amphetamines Screen NEG Urine Benzodiazepines Screen NEG Urine Cocaine Screen POS Urine Cannabinoids Screen NEG Ethyl Alcohol Level 212 MG/DL MDM Medical Decision Making Medical Screen Exam Complete: Yes Emergency Medical Condition: Yes Medical Record Reviewed: Yes Differential Diagnosis Tylenol toxicity, versus alcohol intoxication, versus other substance intoxication, versus right shoulder dislocation, versus right shoulder contusion , versus fracture. Narrative Course During the course of the patient's emergency department visit, the patient's history, examination, and differential diagnosis were reviewed with the patient. The patient was placed on a air sampling and monitoring with oximetry and frequent blood pressure monitoring. The patient had IV access obtained and blood work sent for analysis. The patient's laboratory studies were reviewed and remarkable for a white count of 7.8, hemoglobin 15.8, platelets 187 with 8.3 monocytes, CMP is remarkable for chloride of 112, GFR of 88, PT 9.7, PTT 23.8. Urine drug screen is positive for cocaine, salicylate 5.4, acetaminophen less than 2, alcohol level 212, urinalysis within normal limits Radiology studies were reviewed and remarkable for Last Impressions Shoulder X-Ray 09/29/17 2250 Signed Impressions: CONCLUSION: 1. Bone alignment within normal limits. 2. Moderate acromioclavicular joint arthrosis. Chest X-Ray 09/29/17 4087 Signed Impressions: CONCLUSION: No acute cardiopulmonary disease identified. The patient has been medically cleared and will be discharged into police custody. The patient reports suicidal ideations. The police report that the patient will be on suicide precautions at the police station. The patient is resting comfortably and feels better, is alert and in no distress. The patient's results and examination findings were discussed with the patient. The repeat examination is unremarkable and benign. The history, exam, diagnostic testing, and current condition do not suggest any significant pathology to warrant further testing, continued ED treatment, admission, or surgical evaluation at this point. The vital signs have been stable. The patient does not have uncontrollable pain, intractable vomiting, or other significant symptoms. The patient's condition is stable and appropriate for discharge. The patient will pursue further outpatient evaluation with a primary care physician or other designated or consulting physician as indicated in the discharge instructions. The patient is instructed to report back to the emergency department immediately for reexamination in the mean time if she develops any new or worsening signs or symptoms. The patient expressed understanding and was agreeable with this plan. Diagnosis Primary Impression: Right shoulder pain Qualified Codes: M25.511 - Pain in right shoulder Additional Impressions: Alcohol intoxication Qualified Codes: F10.920 - Alcohol use, unspecified with intoxication, uncomplicated Suicidal ideations Referrals: [facility] 3 days Patient Instructions: Alcohol Intoxication (ED), General Instructions, Shoulder Pain (ED) Med/Other Pt SpecificInfo: No Change to Meds Disposition: [address] LAW ENFORCEMNT Condition: Stable Marcia Mae MD Sep 30, 2017 00:06
== END 2017-09-30 00:49 ==
LOC: NEPC 22:20
DX: M25.511 Pain in right shoulder (principal); F10.129 Alcohol abuse with intoxication, unspecified; R45.851 Suicidal ideations; F14.90 Cocaine use, unspecified, uncomplicated; Y90.7 Blood alcohol level of 200-239 mg/100 ml; E78.00 Pure hypercholesterolemia, unspecified; I10 Essential (primary) hypertension; J45.909 Unspecified asthma, uncomplicated; F32.9 Major depressive disorder, single episode, unspecified; F17.210 Nicotine dependence, cigarettes, uncomplicated; Z85.43 Personal history of malignant neoplasm of ovary; Z88.0 Allergy status to penicillin; Z79.899 Other long term (current) drug therapy
CPT/HCPCS: 71045; 73030; 80053; 80307; 81001; 83735; 85025; 85610; 85730; 99284